=== PATIENT | female | born 1965 | race African-American/Black ===

== ENCOUNTER → 2023-02-11 | Outpatient (CLI) | payer OTHER ==
--- NOTE | 2023-02-11 14:51 | XR ---
EXAMINATION TYPE: XR chest 2V DATE OF EXAM: 02/11/2023 2:38 PM COMPARISON: Chest radiographs from 05/06/2015 TECHNIQUE: XR chest 2V Frontal and lateral views of the chest. CLINICAL INDICATION:Female, 57 years old with history of R05.9 COUGH, UNSPECIFIED; FINDINGS: Lungs/Pleura: There is no evidence of pleural effusion, focal consolidation, or pneumothorax. Pulmonary vascularity: Unremarkable. Heart/mediastinum: Cardiomediastinal silhouette is unremarkable. Musculoskeletal: No acute osseous pathology. IMPRESSION: No acute cardiopulmonary disease/process.
== END | disposition home or self-care (01) ==
LOC: RADXRMAIN 14:16
PROVIDERS: ATTEND Internal Medicine
DX: R05.9 Cough, unspecified (principal)
CPT/HCPCS: 71046

== ENCOUNTER 2023-11-27 20:25 | Emergency (ER) | payer MEDICARE, OTHER ==
--- NOTE | 2023-11-27 20:36 | ED ---
Chest Pain HPI - General Chief Complaint: Chest Pain Stated Complaint: High BP syncope Time Seen by Provider: 11/27/23 20:35 Source: patient, RN notes reviewed, old records reviewed Mode of arrival: wheelchair Limitations: no limitations - History of Present Illness Initial Comments: This is a 58-year-old female to the ER for evaluation patient presents today for evaluation of elevated blood pressure and anxiety. Increased stress. Patient has no chest pain or shortness of breath no travel or sick contacts recommend to the ER for evaluation regards to above symptoms. Patient been pushing himself for the last couple days to weeks due to planning her mom surprise birthday green party Complaint: chest pain, other (Anxiety and stress with elevated blood pressure) -: days(s) Pain Location: substernal, epigastric Pain Radiation: none Severity: moderate Severity scale (1-10): 4 Quality: tightness, heaviness Consistency: constant Improves With: nothing Worsens With: nothing Anginal Symptoms: nausea Treatments Prior to Arrival: none - Related Data Previous Rx's Medication Instructions Recorded Bisoprolol-Hctz 10-6.25 mg [Ziac 1 each PO DAILY #7 tab 05/13/15 10-6.25 MG] Citalopram Hydrobromide [CeleXA] 30 mg PO DAILY 7 Days tab 05/13/15 Famotidine [Pepcid] 20 mg PO DAILY #7 tab 05/13/15 clonazePAM [KlonoPIN] 1 mg PO DAILY@1900 #7 tab 05/13/15 hydrOXYzine pamoate [Vistaril] 50 mg PO DAILY@2100 #14 cap 05/13/15 lisinopriL [Zestril] 10 mg PO BID #14 tab 05/13/15 methIMAzole [Tapazole] 5 mg PO DAILY #7 tab 05/13/15 Allergies Allergy/AdvReac Type Severity Reaction Status Date / Time haloperidol [From Haldol] Allergy Unknown Verified 11/27/23 20:32 lisinopril Allergy Swelling Verified 11/27/23 20:32 Review of Systems ROS Statement: Those systems with pertinent positive or pertinent negative responses have been documented in the HPI. ROS Other: All systems not noted in ROS Statement are negative. EKG Findings - EKG Comments: EKG Findings:: Chest x-ray sinus 95 WV 138 QRS 78 QTc 399 - EKG Results: EKG: interpreted by ASHWINI Past Medical History Past Medical History: CVA/TIA, Hyperlipidemia, Hypertension, Thyroid Disorder Additional Past Medical History / Comment(s): TIA 2014 History of Any Multi-Drug Resistant Organisms: None Reported Past Surgical History: Section, Hernia Repair Past Anesthesia/Blood Transfusion Reactions: No Reported Reaction Past Psychological History: Anxiety, Depression Smoking Status: Current some day smoker General Exam Limitations: no limitations General appearance: alert, in no apparent distress, anxious Head exam: Present: atraumatic, normocephalic, normal inspection Eye exam: Present: normal appearance, PERRL, EOMI. Absent: scleral icterus, conjunctival injection, periorbital swelling ENT exam: Present: normal exam, mucous membranes moist Neck exam: Present: normal inspection. Absent: tenderness, meningismus, lymphadenopathy Respiratory exam: Present: normal lung sounds bilaterally. Absent: respiratory distress, wheezes, rales, rhonchi, stridor Cardiovascular Exam: Present: regular rate, normal rhythm, normal heart sounds. Absent: systolic murmur, diastolic murmur, rubs, gallop, clicks GI/Abdominal exam: Present: soft, normal bowel sounds. Absent: distended, tenderness, guarding, rebound, rigid Extremities exam: Present: normal inspection, full ROM, normal capillary refill. Absent: tenderness, pedal edema, joint swelling, calf tenderness Back exam: Present: normal inspection Neurological exam: Present: alert, oriented X3, CN II-XII intact Psychiatric exam: Present: normal affect, normal mood Skin exam: Present: warm, dry, intact, normal color. Absent: rash Course Vital Signs 11/27/23 11/27/23 11/27/23 20:29 20:47 21:15 Temperature 99.2 F Pulse Rate 99 92 82 Respiratory 18 18 18 Rate Blood Pressure 150/92 138/86 157/94 O2 Sat by Pulse 97 98 98 Oximetry 11/27/23 22:00 Temperature Pulse Rate 84 Respiratory 18 Rate Blood Pressure 146/86 O2 Sat by Pulse 95 Oximetry - Reevaluation(s) Reevaluation #1: 11/27/23 21:19 Medical record is reviewed Reevaluation #2: 11/27/23 21:19 Patient symptoms are improving Reevaluation #3: 11/27/23 21:19 Patient informed of results and questions answered Reevaluation #4: Was pt. sent in by a medical professional or institution ([facility]EXS[facility] Pierre, BONUS CLERK, urgent care, hospital, or jail...) When possible be specific @ -no Did you speak to anyone other than the patient for history (EMS, parent, family, police, friend...)? What history was obtained from this source @ -no Did you review nursing and triage notes (agree or disagree)? Why? @ -agree Are old charts reviewed (outside hosp., previous admission, EMS record, old EKG, old radiological studies, urgent care reports/EKG's, jail records)? Report findings @ -yes Differential Diagnosis (chest pain, altered mental status, abdominal pain women, abdominal pain men, vaginal bleeding, weakness, fever, dyspnea, syncope, headache, dizziness, GI bleed, back pain, seizure, CVA, palpatations, mental health, musculoskeletal)? @ -prior EKG interpreted by me (3pts min.). @ -yes X-rays interpreted by me (1pt min.). @ -no CT interpreted by me (1pt min.). @ -no U/S interpreted by me (1pt. min.). @ -no What testing was considered but not performed or refused? (CT, X-rays, U/S, labs)? Why? @ -none What meds were considered but not given or refused? Why? @ -none Did you discuss the management of the patient with other professionals (professionals i.e. ALEXSANDRA Pierre, BONUS CLERK, lab, RT, psych nurse, social service agency director, guitar repair technician, teacher, commercial credit officer, classification case manager)? Give summary @ -no Was smoking cessation discussed for >3mins.? @ -no Was critical care preformed (if so, how long)? @ -no Were there social determinants of health that impacted care today? How? (Homelessness, low income, unemployed, alcoholism, drug addiction, transportation, low edu. Level, literacy, decrease access to med. care, half-way, rehab)? @ -none Was there de-escalation of care discussed even if they declined (Discuss DNR or withdrawal of care, Hospice)? DNR status @ -no What co-morbidities impacted this encounter? (DM, HTN, Smoking, COPD, CAD, Cancer, CVA, ARF, Chemo, Hep., AIDS, mental health diagnosis, sleep apnea, morbid obesity)? @ -none Was patient admitted / discharged? Hospital course, mention meds given and route, prescriptions, significant lab abnormalities, going to OR and other pertinent info. @ - 58 female to the ER for evaluation of chest pain today. Patient has no acute cause found for chest pain here in the ER chest pain is improved. Patient has no significant chest pain currently feels well, can be discharged tomasa Discharge Undiagnosed new problem with uncertain prognosis? @ -no Drug Therapy requiring intensive monitoring for toxicity (Heparin, Nitro, Insulin, Cardizem)? @ -no Were any procedures done? @ -no Diagnosis/symptom? @ -Chest pain Acute, or Chronic, or Acute on Chronic? @ -Acute Uncomplicated (without systemic symptoms) or Complicated (systemic symptoms)? @ -Complicated Side effects of treatment? @ -no Exacerbation, Progression, or Severe Exacerbation? @ -exacerbation Poses a threat to life or bodily function? How? (Chest pain, USA, SC, pneumonia, PE, COPD, DKA, ARF, appy, cholecystitis, CVA, Diverticulitis, Homicidal, Suicidal, threat to staff... and all critical care pts) @ -yes with cause of chest pain Reevaluation #5: Differential Weakness: Hypoglycemia, shock, sepsis, hyponatremia, anemia, infection, SC, ETOH, adverse medicine reaction, overdose, stroke, this is not meant to be an all-inclusive list. Chest Pain MDM - MDM 58 female to the ER for evaluation of chest pain today. Patient has no acute cause found for chest pain here in the ER chest pain is improved. Patient has no significant chest pain currently feels well, can be discharged home Disposition Clinical Impression: Chest pain, Hypertension Disposition: HOME SELF-CARE Condition: Good Instructions (If sedation given, give patient instructions): Chest Pain (ED), Hypertension (ED) Is patient prescribed a controlled substance at d/c from ED?: No Referrals: Genaro Tran MD [Primary Care Provider] - 1-2 days Time of Disposition: 22:20
[2023-11-27 20:58] LABS: Basophils # (A) 0.1 k/uL (0-0.2); Basophils % (A) 1 %; Eosinophils # (A) 0.2 k/uL (0-0.7); Eosinophils % (A) 2 %; HCT 43.2 % (34.0-46.0); HGB 13.9 gm/dL (11.4-16.0); Lymphocytes # (A) 2.8 k/uL (1.0-4.8); Lymphocytes % (A) 25 %; MCH 26.7 pg (25.0-35.0); MCHC 32.3 g/dL (31.0-37.0); MCV 82.7 fL (80.0-100.0); Mean Platelet Volume 8.2; Monocytes # (A) 0.5 k/uL (0-1.0); Monocytes % (A) 4 %; Neutrophils # (A) 7.5 k/uL (1.3-7.7); Neutrophils % (A) 67 %; Platelet Count 356 k/uL (150-450); RBC 5.22 m/uL (3.80-5.40); RDW 13.4 % (11.5-15.5); WBC 11.2 k/uL (3.8-10.6)
[2023-11-27 21:12] LABS: ALT 27 U/L (4-34); AST 33 U/L (14-36); African American GFR (CKD) 83 (>60 ml/min/1.73 sqM); Albumin 4.4 g/dL (3.5-5.0); Alkaline Phosphatase 98 U/L (38-126); Anion Gap 6 mmol/L; Blood Urea Nitrogen 22 mg/dL (7-17); Calcium 10.1 mg/dL (8.4-10.2); Carbon Dioxide 28 mmol/L (22-30); Chloride 107 mmol/L (98-107); Glucose 119 mg/dL (74-99); Lipase 50 U/L (23-300); Non-African American GFR(CKD) 72 (>60 ml/min/1.73 sqM); Potassium 3.8 mmol/L (3.5-5.1); Sodium 141 mmol/L (137-145); Total Bilirubin 0.5 mg/dL (0.2-1.3); Total Protein 8.4 g/dL (6.3-8.2)
[2023-11-27 21:17] LABS: INR 0.9 (<1.2); Partial Thromboplastin Time 25.8 sec (22.0-30.0); Prothrombin Time 10.5 sec (10.0-12.5)
[2023-11-27 21:21] LABS: NT-Pro-B-Type Natriuretic Pept 187 pg/mL
[2023-11-27] MEDS: SODIUM CHLORIDE 0.9% 1,000 ML IV SCH (21:27)
[2023-11-27] MEDS: LORazepam 2 MG/ML INJ IV STA (21:27)
[2023-11-27] MEDS: SODIUM CHLORIDE 0.9% 1,000 ML IV STA (21:27)
[2023-11-27 21:31] VITALS: RESP 18; TEMP 99.2
[2023-11-27 22:39] VITALS: BP 146/86; PULSE 84
== END 2023-11-27 22:57 | disposition home or self-care (01) ==
LOC: EC 20:25
DX: R07.89 Other chest pain (principal); I10 Essential (primary) hypertension; F17.200 Nicotine dependence, unspecified, uncomplicated; Z86.59 Personal history of other mental and behavioral disorders; Z88.8 Allergy status to other drugs, medicaments and biological substances
CPT/HCPCS: 36415; 93005; 85379; 83880; 80053; 83690; 83735; 84484; 85025; 85610; 85730; 99285; 96374; 96361; J2060

== ENCOUNTER → 2023-12-06 | Outpatient (CLI) | payer MEDICARE, OTHER ==
--- NOTE | 2023-12-08 07:44 | MM ---
Reason for Exam: Follow-up at short interval from prior study. Last screening mammogram was performed 9 month(s) ago. Patient History: Menarche at age 10. First Full-Term at age 16. Postmenopausal. Maternal aunt had breast cancer, age 65. Risk Values: Sivan 5 year model risk: 1.4%. NCI Lifetime model risk: 7.5%. Prior Study Comparison: 06/17/2021 Bilateral Screening Mammogram, [facility]. 03/11/2023 Bilateral Screening Mammogram, [facility]. Tissue Density: Right: The breasts are almost entirely fatty. Findings: No new suspicious masses, calcifications or distortions. Overall Assessment: Negative, BI-RAD 1 Management: Screening Mammogram of both breasts in 1 year. Results were given to the patient verbally at the time of exam. Patient should continue monthly self-breast exams. A clinical breast exam by your physician is recommended on an annual basis. This exam should not preclude additional follow-up of suspicious palpable abnormalities. Note on Sivan scores and lifetime risk: 1. A Sivan score greater than 3% is considered moderate risk. If this is the case, consider specialist referral to assess eligibility for a risk reducing agent. 2. If overall lifetime risk for the development of breast cancer is 20% or higher, the patient may qualify for future screening with alternating mammogram and breast MRI. Electronically signed and approved by: Jacobo Siddiqi DO
== END | disposition home or self-care (01) ==
LOC: RADMAMWWP 13:58
PROVIDERS: ATTEND Internal Medicine
DX: R92.311 Mammographic fatty tissue density, right breast (principal); Z80.3 Family history of malignant neoplasm of breast; Z78.0 Asymptomatic menopausal state
CPT/HCPCS: 77065; G0279; 77061